=== PATIENT | male | born 1960 | race Caucasian/White ===

== ENCOUNTER 2017-02-24 07:12 | Emergency (ER) | payer BC ==
[~2017-02-24] VITALS: Ht 188 cm; Wt 93.0 kg
[2017-02-24 07:15] VITALS: BP 178/87
--- NOTE | 2017-02-24 09:34 | NUR ---
PT. VERBALIZED UNDERSTANDING OF AFTERCARE INSTRUCTIONS.Patient discharged to home in stable condition. Written and verbal after care instructions given. Patient verbalizes understanding of instruction.
== END 2017-02-24 09:35 | disposition home or self-care (01) ==
LOC: ER 07:15
DX: M79.672 Pain in left foot (principal); Z88.1 Allergy status to other antibiotic agents; Z98.890 Other specified postprocedural states
CPT/HCPCS: 73630-TC; A4606; Z7610

== ENCOUNTER 2022-10-20 19:52 | Emergency (ER) | payer SELFPAY ==
[~2022-10-20] VITALS: Ht 177.8 cm; Wt 77.1 kg
--- NOTE | 2022-10-20 20:07 | NUR ---
[id number] FROM [facility] C/O SYNCOPAL EPISODE GETTING OUT OF [employer]BER. ADMITS TO DRINKING WINE. DENIES PAIN, HEAD TRAUMA, OR OTHER COMPLAINTS. PT A/OX4. TOLERATING R/A WELL WITH NO RESP DISTRESS. SAFETY MEASURES IN PLACE .
--- NOTE | 2022-10-20 20:07 | NUR ---
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
--- NOTE | 2022-10-20 20:15 | NUR ---
URINE SPECIMEN COLLECTED AND SENT TO LAB.
--- NOTE | 2022-10-20 20:20 | NUR ---
BLOOD WORK COLLECTED, SENT TO LAB
[2022-10-20] MEDS ORDERED: IV NS 0.9% 500 ML BAG IV ONE (20:30)
[2022-10-20 20:45] LABS: BASOPHILS % (AUTO) 0.8 % (0.0-2.0); EOSINOPHILS % (AUTO) 2.5 % (0.0-6.0); HEMATOCRIT 42 % (39-51); HEMOGLOBIN 13.7 g/dL (13.5-17.5); LYMPHOCYTES # (AUTO) 1.8 K/uL (0.8-4.8); LYMPHOCYTES % (AUTO) 33.4 % (20.0-44.0); MEAN CORPUSCULAR HGB CONC 33 g/dl (31.0-36.0); MEAN CORPUSCULAR VOLUME 87 fL (80-96); MONOCYTES # (AUTO) 0.5 K/uL (0.1-1.30); MONOCYTES % (AUTO) 9.1 % (2.0-12.0); NEUTROPHILS % (AUTO) 54.2 % (43.0-81.0); PLATELET COUNT (AUTO) 228 K/uL (150-450); RED BLOOD CELL COUNT(AUTO) 4.75 MIL/uL (4.5-6.0); WHITE BLOOD COUNT (AUTO) 5.5 K/uL (4.3-11.0)
--- NOTE | 2022-10-20 20:46 | NUR ---
PT TAKEN TO CT VIA BEL
[2022-10-20 21:02] LABS: ALANINE AMINOTRANSFERASE 38 U/L (12-78); ALBUMIN 3.2 g/dL (3.4-5.0); ALKALINE PHOSPHATASE 68 U/L (46-116); ASPARTATE AMINOTRANSFERASE 39 U/L (15-37); BILIRUBIN,DIRECT 0.2 mg/dL (0.0-0.2); BILIRUBIN,TOTAL 0.7 mg/dL (0.2-1.0); CALCIUM, SERUM 8.7 mg/dL (8.5-10.1); CARBON DIOXIDE 24 mmol/L (21-32); CHLORIDE 108 mmol/L (98-107); CREATININE 1.1 mg/dL (0.6-1.3); GLUCOSE 116 mg/dL (74-106); POTASSIUM 3.9 mmol/L (3.5-5.1); SODIUM SERUM 142 mmol/L (136-145); TOTAL PROTEIN, SERUM 6.6 g/dL (6.4-8.2); UREA NITROGEN, BLOOD 30 mg/dL (7-18)
[2022-10-20 21:22] LABS: BILIRUBIN,URINE NEGATIVE (NEGATIVE); COLOR,URINE YELLOW (YELLOW); LEUKOCYTE ESTERASE ,URINE NEGATIVE (NEGATIVE); NITRITE, URINE NEGATIVE (NEGATIVE); PH,URINE 5.5 (5.0-8.0); PROTEIN,URINE 3+ mg/dl (NEGATIVE); UGLUCOSE NEGATIVE (NEGATIVE); UROBILINOGEN,URINE 0.2 EU/dL (0.2)
[2022-10-20 21:37] LABS: BACTERIA,URINE RARE /HPF (None Seen); RBC,URINE 21-50 /HPF (0-2); WBC,URINE 0-2 /HPF (0-3)
[2022-10-20 21:38] LABS: HYALINE CASTS, URINE Few /LPF (None Seen); MUCUS,URINE Many /LPF (None Seen)
--- NOTE | 2022-10-20 22:07 | NUR ---
UPDATED ITALO DAUGHTER
--- NOTE | 2022-10-20 22:30 | NUR ---
SPINNER TENDER AT BEDSIDE
--- NOTE | 2022-10-20 22:56 | NUR ---
Patient eloped from facility. ER MD notified.
[2022-10-20 23:11] VITALS: BP 111/56; TEMP 98.5
== END 2022-10-20 22:56 | disposition left against medical advice (07) ==
LOC: ER 20:03
DX: I50.9 Heart failure, unspecified (principal); R78.89 Finding of other specified substances, not normally found in blood; R00.8 Other abnormalities of heart beat; R55 Syncope and collapse; Z60.2 Problems related to living alone; Z88.8 Allergy status to other drugs, medicaments and biological substances
CPT/HCPCS: 99285; 96360; 93005; 71045; 70450; 85025; 80048; 80076; 81001; 36415; 84484 ×2; 85730; 83880; 80320; J7040; G0480